=== PATIENT | male | born 1965 ===

== ENCOUNTER 2024-12-14 19:58 | Inpatient (IN) | payer BC ==
[~2024-12-14] VITALS: Ht 188 cm; Wt 111.1 kg
[2024-12-14 20:00] VITALS: BP 138/95; PULSE 99; RESP 17; TEMP 99.3; O2SAT 97
[2024-12-14] MEDS: Morphine 4mg INJECTION 4 MG/ML INJ IV PRN (21:40)
[2024-12-14] MEDS: SODIUM CHLORIDE 0.9% 1000ML 1,000 ML IV SCH (21:40)
[2024-12-14 22:00] VITALS: BP 138/95; PULSE 99; RESP 17; TEMP 99.3; O2SAT 97
[2024-12-14 23:18] VITALS: BP 138/95; PULSE 99; RESP 17; TEMP 99.3; O2SAT 97
[2024-12-15] VITALS (8 sets, daily range): BP systolic 114–127; BP diastolic 78–84; PULSE 86–107; RESP 17–18; TEMP 98.8–99.8; O2SAT 93–95
[2024-12-15 05:22] LABS: BASOPHILS % 0.2 % (0.0-1.0); HEMOGLOBIN 14.2 g/dL (14.0-18.0); LYMPHOCYTES # (AUTO) 1.4 (1.0-3.2); LYMPHOCYTES % 7.1 % (18.0-39.1); MEAN CORPUSCULAR HEMOGLOBIN 30.2 pg (28-32); MEAN CORPUSCULAR VOLUME 91.5 fL (81-99); MONOCYTES # (AUTO) 1.6 (0.2-0.8); MONOCYTES % 8.2 % (4.4-11.3); NEUTROPHILS # (AUTO) 16.5 (2.1-6.9); NEUTROPHILS % 83.3 % (38.7-80.0); PLATELET COUNT 197 x10e3/uL (140-360); RED CELL DISTRIBUTION WIDTH 12.9 % (11.7-14.4); WHITE BLOOD COUNT 19.73 x10e3/uL (4.8-10.8)
[2024-12-15 06:00] LABS: ALBUMIN 3.5 g/dL (3.5-5.0); ALBUMIN/GLOBULIN RATIO 1.1 (0.8-2.0); ANION GAP 15.1 mmol/L (8-16); BILIRUBIN,TOTAL 1.2 mg/dL (0.2-1.2); CALCIUM 8.9 mg/dL (8.4-10.2); CREATININE, SERUM 1.33 mg/dL (0.72-1.25); POTASSIUM 4.1 mmol/L (3.5-5.1); TOTAL PROTEIN 6.6 g/dL (6.5-8.1)
[2024-12-15] MEDS ORDERED: DOCUSATE SODIUM 100 MG CAP PO PRN (08:15)
[2024-12-15] MEDS ORDERED: METOPROLOL TARTRATE INJ 1 MG/ML VIAL IV PRN (08:15)
[2024-12-15] MEDS ORDERED: MELATONIN 3 MG TAB PO PRN (08:15)
[2024-12-15] MEDS ORDERED: FENTANYL CITRATE/PF 100MCG/2 ML INJ ONE ×2 (10:55→12:05)
[2024-12-15] MEDS ORDERED: ROCURONIUM BROMIDE 0 ML IV ONE (10:55)
[2024-12-15] MEDS ORDERED: SUCCINYLCHOLINE CHLORIDE 20 MG/ML 10ML VIAL ONE (10:55)
[2024-12-15] MEDS ORDERED: ACETAMINOPHEN 1000 MG/100 ML 100 ML IV ONE ×2 (10:55→12:02)
[2024-12-15] MEDS ORDERED: LIDOCAINE HCL 2% LOCAL INJ 5 ML SDV VIAL INJ ONE (10:55)
[2024-12-15] MEDS ORDERED: SEVOFLURANE INHAL SOLN 250 ML PEN BTL ONE (10:55)
[2024-12-15] MEDS ORDERED: PROPOFOL IV EMULSION 10 MG/ML 20 ML VIAL ONE (10:56)
[2024-12-15] MEDS ORDERED: DEXAMETHASONE SOD PHOS INJ 4 MG/ML SDV ONE (11:49)
[2024-12-15] MEDS ORDERED: ONDANSETRON HCL INJ 2MG/ML 2ML 2 MG/ML VIAL ONE (11:49)
[2024-12-15] MEDS ORDERED: ROCURONIUM BROMIDE 1 ML IV ONE (11:51)
[2024-12-15] MEDS ORDERED: SUGAMMADEX SODIUM 200 MG/2 ML VIAL IV ONE (12:31)
[2024-12-15] MEDS ORDERED: ACETAMINOPHEN 1000 MG/100 ML IV PRN (13:00)
[2024-12-15] MEDS: SODIUM CHLORIDE 0.9% 100 ML ONE (13:53)
[2024-12-15] MEDS: PIPERACILLIN/TAZOBACTAM 3.375 GM VIAL ONE (13:53)
[2024-12-16] VITALS (12 sets, daily range): BP systolic 115–153; BP diastolic 62–97; PULSE 83–102; RESP 17–20; TEMP 98.2–98.6; O2SAT 94–95
[2024-12-16] MEDS: HYDROCODONE/APAP 7.5MG-325MG 1 EA TAB PO PRN (05:47)
[2024-12-16 06:39] LABS: BASOPHILS % 0.1 % (0.0-1.0); HEMATOCRIT 40.7 % (38.2-49.6); HEMOGLOBIN 13.5 g/dL (14.0-18.0); LYMPHOCYTES # (AUTO) 1.5 (1.0-3.2); LYMPHOCYTES % 8.4 % (18.0-39.1); MEAN CORPUSCULAR HEMOGLOBIN 30.1 pg (28-32); MEAN CORPUSCULAR HGB CONC 33.2 g/dL (31-35); MEAN CORPUSCULAR VOLUME 90.8 fL (81-99); MONOCYTES # (AUTO) 0.9 (0.2-0.8); MONOCYTES % 5.2 % (4.4-11.3); NEUTROPHILS # (AUTO) 15.3 (2.1-6.9); NEUTROPHILS % 85.6 % (38.7-80.0); PLATELET COUNT 193 x10e3/uL (140-360); RED BLOOD COUNT 4.48 x10e6/uL (4.3-5.7); RED CELL DISTRIBUTION WIDTH 12.8 % (11.7-14.4); WHITE BLOOD COUNT 17.89 x10e3/uL (4.8-10.8)
[2024-12-16 07:20] LABS: ANION GAP 14.8 mmol/L (8-16); CALCIUM 9.1 mg/dL (8.4-10.2); POTASSIUM 3.8 mmol/L (3.5-5.1)
[2024-12-17] VITALS (9 sets, daily range): BP systolic 130–149; BP diastolic 86–98; PULSE 58–97; RESP 16–20; TEMP 98–98.8; O2SAT 94–99
[2024-12-17] MEDS: ACETAMINOPHEN 325 MG TAB PO PRN (00:33)
[2024-12-17] MEDS: ONDANSETRON HCL INJ 2MG/ML 2ML 2 MG/ML VIAL IV PRN (05:42)
[2024-12-17 06:37] LABS: BASOPHILS # (AUTO) 0.1 (0.0-0.1); BASOPHILS % 0.3 % (0.0-1.0); EOSINOPHILS # (AUTO) 0.1 (0.0-0.4); EOSINOPHILS % 0.7 % (0.0-6.0); HEMATOCRIT 41.7 % (38.2-49.6); HEMOGLOBIN 13.5 g/dL (14.0-18.0); LYMPHOCYTES # (AUTO) 1.4 (1.0-3.2); LYMPHOCYTES % 9.3 % (18.0-39.1); MEAN CORPUSCULAR HEMOGLOBIN 29.9 pg (28-32); MEAN CORPUSCULAR HGB CONC 32.4 g/dL (31-35); MEAN CORPUSCULAR VOLUME 92.3 fL (81-99); MONOCYTES % 6.4 % (4.4-11.3); NEUTROPHILS # (AUTO) 12.3 (2.1-6.9); NEUTROPHILS % 82.9 % (38.7-80.0); PLATELET COUNT 206 x10e3/uL (140-360); RED BLOOD COUNT 4.52 x10e6/uL (4.3-5.7); RED CELL DISTRIBUTION WIDTH 12.9 % (11.7-14.4); WHITE BLOOD COUNT 14.79 x10e3/uL (4.8-10.8)
[2024-12-17 06:49] LABS: ANION GAP 14.8 mmol/L (8-16); CALCIUM 9.3 mg/dL (8.4-10.2); CREATININE, SERUM 0.98 mg/dL (0.72-1.25); POTASSIUM 3.8 mmol/L (3.5-5.1)
[2024-12-17] MEDS: SENNA-S TABLET PO SCH (09:17)
[2024-12-17] MEDS ORDERED: ALBUTEROL/IPRATROPIUM 3 ML NEB NEB PRN (11:45)
[2024-12-17] MEDS: PROMETHAZINE 12.5MG/ NACL 0.9% 12.5 MG/50 ML BAG IV PRN (12:23)
[2024-12-17] MEDS: FAMOTIDINE 20 MG TAB PO SCH (12:45)
[2024-12-17] MEDS: ALBUTEROL/IPRATROPIUM 3 ML NEB NEB PRN (12:47)
[2024-12-17] MEDS: BISACODYL 10 MG SUPP PR STA (15:05)
[2024-12-17] MEDS: CALCIUM CARBONATE 500 MG CHEWABLE TABS PO PRN (22:51)
[2024-12-18] VITALS (7 sets, daily range): BP systolic 127–152; BP diastolic 91–94; PULSE 73–89; RESP 17–20; TEMP 98–98.7; O2SAT 96–100
[2024-12-18 06:13] LABS: BASOPHILS % 0.3 % (0.0-1.0); EOSINOPHILS # (AUTO) 0.1 (0.0-0.4); HEMATOCRIT 40.1 % (38.2-49.6); HEMOGLOBIN 13.2 g/dL (14.0-18.0); LYMPHOCYTES # (AUTO) 1.5 (1.0-3.2); LYMPHOCYTES % 13.2 % (18.0-39.1); MEAN CORPUSCULAR HEMOGLOBIN 29.9 pg (28-32); MEAN CORPUSCULAR HGB CONC 32.9 g/dL (31-35); MEAN CORPUSCULAR VOLUME 90.9 fL (81-99); MONOCYTES % 8.7 % (4.4-11.3); NEUTROPHILS # (AUTO) 8.9 (2.1-6.9); NEUTROPHILS % 76.1 % (38.7-80.0); PLATELET COUNT 239 x10e3/uL (140-360); RED BLOOD COUNT 4.41 x10e6/uL (4.3-5.7); RED CELL DISTRIBUTION WIDTH 12.6 % (11.7-14.4); WHITE BLOOD COUNT 11.67 x10e3/uL (4.8-10.8)
[2024-12-18 07:20] LABS: ANION GAP 13.8 mmol/L (8-16); CALCIUM 9.2 mg/dL (8.4-10.2); CREATININE, SERUM 0.95 mg/dL (0.72-1.25); POTASSIUM 3.8 mmol/L (3.5-5.1)
[2024-12-18] MEDS: BISACODYL 10 MG SUPP PR ONE (08:09)
[2024-12-18] MEDS ORDERED: CEPHALEXIN500 MG PO (11:34)
[2024-12-18] MEDS ORDERED: FAMOTIDINE20 MG PO (11:34)
[2024-12-18] MEDS ORDERED: METRONIDAZOLE500 MG PO (11:34)
[2024-12-18] MEDS ORDERED: IBUPROFEN600 MG PO (11:34)
[2024-12-18] MEDS ORDERED: ACETAMINOPHEN325 M1 PO (11:34)
[2024-12-18] MEDS ORDERED: TUMS200 MG PO (11:34)
[2024-12-18] MEDS ORDERED: SENNA S TABLET1 EACH PO (11:34)
[2024-12-19] MEDS ORDERED: ONDANSETRON ODT4 MG PO (11:09)
== END 2024-12-18 18:20 | disposition home or self-care (01) | DRG 399 ==
LOC: MED/SURG3 19:58
PROVIDERS: ADMIT Internal Medicine; ATTEND Internal Medicine
PROC: 0DTJ4ZZ Resection of Appendix, Percutaneous Endoscopic Approach (ICD-10-PCS; principal; 2024-12-15 11:36)
DX: K35.32 Acute appendicitis with perforation, localized peritonitis, and gangrene, without abscess (principal); E86.0 Dehydration; E66.9 Obesity, unspecified; Z68.31 Body mass index [BMI] 31.0-31.9, adult; Z13.1 Encounter for screening for diabetes mellitus; Z71.3 Dietary counseling and surveillance; Z71.81 Spiritual or religious counseling; Z79.899 Other long term (current) drug therapy
CPT/HCPCS: 36415; 74019; 80048; 80053; 85025; 88304; 94640; 94799; C1766; J0330; J1100; J2003; J2270; J2405; J2543; J2550; J7030; J7050